=== PATIENT | female | born 1980 | race Caucasian/White ===

== ENCOUNTER 2016-09-07 09:59 | Emergency (ER) | payer OTHER, SELFPAY ==
[2016-09-07] MEDS ORDERED: HYDROcodone/Acetaminophen 10/325 mg Tablet ONE (10:39)
[2016-09-07] MEDS ORDERED: Cyclobenzaprine 10 MG TAB ONE (10:39)
[2016-09-07] MEDS ORDERED: Ketorolac Tromethamine 60 MG/2 ML VIAL ONE (10:39)
[2016-09-07] MEDS ORDERED: Acetaminophen 325 MG TAB ONE (10:39)
--- NOTE | 2016-09-07 11:05 | RAD ---
3 VIEWS LUMBOSACRAL SPINE: Date: 09/07/16 HISTORY: Back pain off and on for 2 months and sciatica. FINDINGS: Three views of the lumbosacral spine show normal height and alignment of the vertebral bodies and in tervertebral discs without fracture or subluxation. Very small osteophytes are seen in the lower lum bar spine. IMPRESSION: Mild degenerative changes in the lower lumbar spine without acute osseous abnormality. POS: [facility]
[2016-09-07 11:06] LABS: #Basophils 0.1 thou/uL (0.0-0.2); #Eosinphils 0.1 thou/uL (0.0-0.7); #Lymphocytes 2.5 thou/uL (1.20-3.40); #Monocytes 0.5 thou/uL (0.11-0.59); #Neutrophils 2.8 thou/uL (1.40-6.50); %Basophils 1.6 % (0.0-1.0); %Eosinophils 2.1 % (0.0-10.0); %Lymphocytes 41.7 % (21.0-51.0); %Monocytes 7.7 % (0.0-10.0); %Neutrophils 46.9 % (42.0-75.0); Hemoglobin 16.7 g/dL (12.0-16.0); Mean Corpuscular HGB CONC 34.9 g/dL (32.0-36.0); Mean Corpuscular Hemoglobin 30.2 pg (27.0-31.0); Mean Corpuscular Volume 86.6 fl (81.0-99.0); Mean Platelet Volume 7.1 fL (7.4-10.4); Platelet Count 163 thou/uL (130-400); RBC Distribution Width 11.8 % (11.5-14.5); Red Blood Cell (RBC) Count 5.54 mill/uL (4.20-5.40)
[2016-09-07 11:21] LABS: ALT (SGPT) 36 U/L (8-55); AST (SGOT) 24 U/L (5-34); Alkaline Phosphatase 83 U/L (40-150); Anion Gap 17 mmol/L (10-20); BUN (Urea Nitrogen) 5 mg/dL (7.0-18.7); Bilirubin, Total 0.4 mg/dL (0.2-1.2); Calc. Creatinine Clearance 0 mL/min (70-130); Calcium 9.2 mg/dL (7.8-10.44); Carbon Dioxide 18 mmol/L (22-29); Chloride 103 mmol/L (98-107); Estimated GFR-MDRD Greater than 90; Globulin 3.3 g/dL (2.4-3.5); Glucose 202 mg/dL (70-105); Potassium 3.7 mmol/L (3.5-5.1); Protein, Total 7.3 g/dL (6.0-8.3); Sodium 134 mmol/L (136-145)
[2016-09-07 12:53] LABS: Bilirubin Negative (Negative); Blood, Urine Large (Negative); Clarity Clear (Clear); Glucose, Urine (Dipstick) 250 mg/dL (Negative); Leukocyte Negative (Negative); Nitrite Negative (Negative); Protein, Urine (Dipstick) > or equal to 300 mg/dL (Neg-Trace); pH, Urine 5.5 (5.0-9.0)
[2016-09-07 12:54] LABS: Pregnancy Test - Urine (BHCG) Negative (NEGATIVE); Pregu Control Background? CLEAR/WHITE (CLR/WHITE); Pregu Control Bar Appear? YES (CONTROL BAR)
[2016-09-07 13:03] LABS: RBC/HPF 0-3 HPF (0-3); Squamous Epithelial 0-3 HPF (0-3)
== END 2016-09-07 13:21 | disposition home or self-care (01) ==
LOC: NAV ERS 09:59
DX: M54.5 Low back pain (principal); R80.9 Proteinuria, unspecified; N94.6 Dysmenorrhea, unspecified; E11.65 Type 2 diabetes mellitus with hyperglycemia; Z79.84 Long term (current) use of oral hypoglycemic drugs; Z79.899 Other long term (current) drug therapy; Z90.721 Acquired absence of ovaries, unilateral
CPT/HCPCS: 72100; 80053; 81003; 81015; 81025; 85025; 85652; 86140; 96372; J1885

== ENCOUNTER 2018-01-07 08:01 | Outpatient (CLI) | payer OTHER ==
--- NOTE | 2018-01-07 09:26 | RAD ---
RIGHT FOOT THREE VIEWS: History: Foreign body in the right foot. FINDINGS: There is a radiopaque linear metallic foreign body consistent with a broken needle in the soft tissue s of the plantar aspect of the right heel. No fracture or dislocation is seen. Plantar posterior calc aneal spur is present. POS: [facility]
== END 2018-01-07 08:02 | disposition home or self-care (01) ==
LOC: NAV RAD 08:01
PROVIDERS: ATTEND Family Medicine
DX: S90.851A Superficial foreign body, right foot, initial encounter (principal); M77.31 Calcaneal spur, right foot

== ENCOUNTER 2018-02-04 08:37 | Emergency (ER) | payer OTHER ==
[2018-02-04] MEDS ORDERED: Ketorolac Tromethamine 30 MG/ML VIAL ONE (09:20)
[2018-02-04 09:28] LABS: Bilirubin Small (Negative); Blood, Urine Moderate (Negative); Clarity Clear (Clear); Glucose, Urine (Dipstick) Negative (Negative); Leukocyte Trace (Negative); Nitrite Negative (Negative); Protein, Urine (Dipstick) > or equal to 300 mg/dL (Neg-Trace); Specific Gravity, Urine 1.025 (1.005-1.030)
[2018-02-04 09:33] LABS: WBC/HPF 0-3 HPF (0-3)
[2018-02-04 09:34] LABS: Bacteria/HPF Rare-Few HPF (None Seen); Other Microscopic Description NO
[2018-02-04 09:54] LABS: #Basophils 0.1 thou/uL (0.0-0.2); #Eosinphils 0.3 thou/uL (0.0-0.7); #Monocytes 1.2 thou/uL (0.11-0.59); #Neutrophils 9.2 thou/uL (1.40-6.50); %Basophils 0.7 % (0.0-1.0); %Eosinophils 2.2 % (0.0-10.0); %Neutrophils 72.1 % (42.0-75.0); Hemoglobin 16.8 g/dL (12.0-16.0); Mean Corpuscular HGB CONC 33.9 g/dL (32.0-36.0); Mean Corpuscular Volume 88.6 fL (78.0-98.0); Mean Platelet Volume 7.3 fL (7.4-10.4); Platelet Count 216 thou/uL (130-400); RBC Distribution Width 11.4 % (11.5-14.5); Red Blood Cell (RBC) Count 5.61 mill/uL (4.20-5.40); White Blood Cell (WBC) Count 12.7 thou/uL (4.8-10.8)
[2018-02-04 10:01] LABS: ALT (SGPT) 27 U/L (8-55); AST (SGOT) 19 U/L (5-34); Albumin 4.5 g/dL (3.5-5.0); Alkaline Phosphatase 74 U/L (40-150); Anion Gap 16 mmol/L (10-20); BUN (Urea Nitrogen) 9 mg/dL (7.0-18.7); Bilirubin, Total 0.8 mg/dL (0.2-1.2); Calc. Creatinine Clearance 0 mL/min (70-130); Calcium 10.3 mg/dL (7.8-10.44); Carbon Dioxide 25 mmol/L (22-29); Chloride 101 mmol/L (98-107); Estimated GFR-MDRD Greater than 90; Globulin 3.6 g/dL (2.4-3.5); Glucose 155 mg/dL (70-105); Potassium 4.1 mmol/L (3.5-5.1); Protein, Total 8.1 g/dL (6.0-8.3); Sodium 138 mmol/L (136-145)
[2018-02-04] MEDS ORDERED: Cipro 250 MG TAB ONE ×2 (10:24→10:30)
== END 2018-02-04 10:36 | disposition home or self-care (01) ==
LOC: NAV ERS 08:37
DX: N39.0 Urinary tract infection, site not specified (principal); E11.9 Type 2 diabetes mellitus without complications; F32.9 Major depressive disorder, single episode, unspecified; Z79.899 Other long term (current) drug therapy; Z79.84 Long term (current) use of oral hypoglycemic drugs
CPT/HCPCS: 80053; 81003; 81015; 83605; 85025; 87804; 96374; J1885

== ENCOUNTER 2023-03-09 09:24 | Emergency (ER) | payer OTHER, SELFPAY | END 2023-03-09 10:57 | disposition home or self-care (01) | LOC: NAV ERS 09:24 | DX: J32.9 Chronic sinusitis, unspecified (principal); I10 Essential (primary) hypertension; E11.9 Type 2 diabetes mellitus without complications; Z79.84 Long term (current) use of oral hypoglycemic drugs; Z79.899 Other long term (current) drug therapy | CPT/HCPCS: 87081; 87430; 87804; 87807; 99283 ==